=== PATIENT | male | born 1960 | race Caucasian/White ===

== ENCOUNTER 2024-11-12 10:31 | Inpatient (IN) | payer BC, MEDICARE ==
[~2024-11-12] VITALS: Ht 182.9 cm; Wt 96.2 kg
[2024-11-12] VITALS (22 sets, daily range): BP systolic 105–126; BP diastolic 54–86; PULSE 68–102; RESP 18–33; TEMP 36.1–37.1; O2SAT 93–98
[2024-11-12 11:05] LABS: BASOPHILS % 0.3 % (0.0-2.0); DIFFERENTIAL COMMENT 0; EOSINOPHILS % 1.7 % (0.0-5.0); HEMATOCRIT. 45.4 % (42.0-52.0); HEMOGLOBIN. 16.4 g/dL (14.0-18.0); LYMPHOCYTES % 10.9 % (20.0-50.0); MEAN CORPUSCULAR HEMOGLOBIN 31.7 pg (28.0-32.0); MEAN CORPUSCULAR VOLUME 87.9 fL (80.0-94.0); MEAN PLATELET VOLUME 8.1 fl (7.4-10.4); NEUTROPHILS % 76.1 % (40.0-76.0); PLATELET 197 x1000/uL (130-400); RED BLOOD CELL COUNT 5.16 mill/uL (4.7-6.1); RED CELL DISTRIBUTION WIDTH 12.5 % (11.6-14.6); WHITE BLOOD COUNT 13.9 x1000/uL (4.5-11.0)
[2024-11-12 11:20] LABS: INR 1.3; PROTHROMBIN TIME 13.5 sec (9.6-11.0)
[2024-11-12 11:28] LABS: CHLORIDE 98 mEq/L (98-107); POTASSIUM 3.6 mEq/L (3.5-5.1); SODIUM 131 mEq/L (136-145)
[2024-11-12 11:29] LABS: CALCIUM 9.2 mg/dL (8.7-10.4); CARBON DIOXIDE 24 mEq/L (21-32)
[2024-11-12 11:34] LABS: CREATININE 1.2 mg/dL (0.6-1.3); GLUCOSE 131 mg/dL (70-105); UREA NITROGEN BLOOD 26 mg/dL (9-23)
[2024-11-12] MEDS: KETOROLAC 30MG/ML VIAL IM NR (13:29)
[2024-11-12] MEDS: DIATR MEGLU/DIATRIZOATE SOLN 120ML ONE (14:10)
[2024-11-12] MEDS: MORPHINE SULFATE 4 MG/ML INJ (FOR IV/IM USE) IV STA (14:35)
[2024-11-12] MEDS: METRONIDAZOLE 500 MG PREMIX 100 ML IV ONE (14:45)
[2024-11-12] MEDS: LEVOFLOXACIN 750MG PREMIX 150 ML IV ONE (15:00)
[2024-11-12] MEDS ORDERED: SUGAMMADEX SODIUM 200MG/2ML VIAL IV ONE (15:54)
[2024-11-12] MEDS ORDERED: ONDANSETRON HCL 4MG/2ML INJ IV PRN ×2 (16:00→23:45)
[2024-11-12] MEDS: MORPHINE SULFATE 4 MG/ML INJ (FOR IV/IM USE) IV PRN (20:00)
[2024-11-12] MEDS: DEXT 5%/0.45% NACL KCL 20MEQ/L 1,000 ML IV SCH (20:55)
[2024-11-12] MEDS: METRONIDAZOLE 500 MG PREMIX 100 ML IV SCH (20:55)
[2024-11-12] MEDS: PIPERACILLIN/TAZO 3.375G/50ML 50 ML IV SCH (22:13)
[2024-11-12] MEDS: MORPHINE SULFATE 2 MG/ML INJ (NOT FOR IM USE) IV PRN (22:14)
[2024-11-12 22:28] LABS: HEMATOCRIT. 45.6 % (42.0-52.0); HEMOGLOBIN. 16.1 g/dL (14.0-18.0); MEAN CORPUSCULAR HEMOGLOBIN 31.4 pg (28.0-32.0); MEAN CORPUSCULAR HGB CONC 35.2 g/dL (31.0-37.0); MEAN CORPUSCULAR VOLUME 89.2 fL (80.0-94.0); MEAN PLATELET VOLUME 8.3 fl (7.4-10.4); PLATELET 291 x1000/uL (130-400); RED BLOOD CELL COUNT 5.11 mill/uL (4.7-6.1); WHITE BLOOD COUNT 12.2 x1000/uL (4.5-11.0)
[2024-11-12 22:31] LABS: DIFFERENTIAL COMMENT 1
[2024-11-12 22:44] LABS: PLATELET ESTIMATE NORMAL
[2024-11-13] VITALS (49 sets, daily range): BP systolic 93–130; BP diastolic 44–76; PULSE 84–110; RESP 18–31; TEMP 36.7–37.2; O2SAT 75–98
[2024-11-13] MEDS: PIPERACILLIN/TAZO 3.375G/50ML 50 ML IV SCH (05:07)
[2024-11-13 06:08] LABS: HEMATOCRIT. 44.9 % (42.0-52.0); MEAN CORPUSCULAR HEMOGLOBIN 31.5 pg (28.0-32.0); MEAN CORPUSCULAR HGB CONC 35.6 g/dL (31.0-37.0); MEAN CORPUSCULAR VOLUME 88.3 fL (80.0-94.0); MEAN PLATELET VOLUME 9.1 fl (7.4-10.4); PLATELET 298 x1000/uL (130-400); RED BLOOD CELL COUNT 5.08 mill/uL (4.7-6.1); WHITE BLOOD COUNT 13.3 x1000/uL (4.5-11.0)
[2024-11-13 06:25] LABS: DIFFERENTIAL COMMENT 1
[2024-11-13] MEDS: ENOXAPARIN 40MG/0.4ML SYR SUBCUT SCH (08:21)
[2024-11-13] MEDS: PANTOPRAZOLE SODIUM 40 MG/VIAL IV SCH (08:21)
[2024-11-13 09:04] LABS: CHLORIDE 96 mEq/L (98-107); POTASSIUM 4.8 mEq/L (3.5-5.1); SODIUM 128 mEq/L (136-145)
[2024-11-13 09:05] LABS: CALCIUM 8.4 mg/dL (8.7-10.4); CARBON DIOXIDE 18 mEq/L (21-32)
[2024-11-13 09:10] LABS: UREA NITROGEN BLOOD 40 mg/dL (9-23)
[2024-11-13 09:13] LABS: GLUCOSE 367 mg/dL (70-105); PHOSPHORUS 6.3 mg/dL (2.5-4.9)
[2024-11-13 10:55] LABS: PLATELET ESTIMATE NORMAL
[2024-11-13] MEDS ORDERED: NALOXONE HCL 0.4MG/ML VIAL IV PRN (15:15)
[2024-11-13] MEDS: DEXT 5%/0.9% NACL 1,000 ML IV SCH (15:31)
[2024-11-13] MEDS ORDERED: DEXTROSE 50% WATER 50ML SYRINGE IV PRN (19:00)
[2024-11-13] MEDS: BLOOD SUGAR DIAGNOSTIC STRIP TEST SCH (19:26)
[2024-11-13] MEDS: SODIUM CHLORIDE 0.9% 1,000 ML IV SCH (19:28)
[2024-11-13] MEDS: INSULIN LISPRO 100 UNITS/ML SUBCUT SCH (20:48)
[2024-11-14] VITALS (60 sets, daily range): BP systolic 89–160; BP diastolic 45–96; PULSE 99–118; RESP 12–35; TEMP 36.4–36.7; O2SAT 91–97
[2024-11-14] MEDS: BLOOD SUGAR DIAGNOSTIC STRIP TEST SCH (02:00)
[2024-11-14] MEDS: INSULIN LISPRO 100 UNITS/ML SUBCUT SCH (02:00)
[2024-11-14 05:56] LABS: HEMATOCRIT. 41.1 % (42.0-52.0); HEMOGLOBIN. 14.3 g/dL (14.0-18.0); MEAN CORPUSCULAR HEMOGLOBIN 30.9 pg (28.0-32.0); MEAN CORPUSCULAR HGB CONC 34.7 g/dL (31.0-37.0); MEAN CORPUSCULAR VOLUME 89.1 fL (80.0-94.0); MEAN PLATELET VOLUME 8.7 fl (7.4-10.4); PLATELET 293 x1000/uL (130-400); RED BLOOD CELL COUNT 4.62 mill/uL (4.7-6.1)
[2024-11-14 06:02] LABS: DIFFERENTIAL COMMENT 1
[2024-11-14 06:07] LABS: CARBON DIOXIDE 23 mEq/L (21-32); CHLORIDE 100 mEq/L (98-107); POTASSIUM 4.5 mEq/L (3.5-5.1); SODIUM 132 mEq/L (136-145)
[2024-11-14 06:08] LABS: CALCIUM 7.9 mg/dL (8.7-10.4)
[2024-11-14 06:13] LABS: CREATININE 1.9 mg/dL (0.6-1.3); UREA NITROGEN BLOOD 46 mg/dL (9-23)
[2024-11-14 06:15] LABS: PHOSPHORUS 4.2 mg/dL (2.5-4.9)
[2024-11-14 06:52] LABS: GLUCOSE 148 mg/dL (70-105)
[2024-11-14 09:30] LABS: PLATELET ESTIMATE NORMAL
[2024-11-15] VITALS (37 sets, daily range): BP systolic 87–171; BP diastolic 59–154; PULSE 92–113; RESP 20–36; TEMP 36.6–36.9; O2SAT 91–96
[2024-11-15 05:57] LABS: HEMATOCRIT. 36.9 % (42.0-52.0); HEMOGLOBIN. 13.1 g/dL (14.0-18.0); MEAN CORPUSCULAR HEMOGLOBIN 31.5 pg (28.0-32.0); MEAN CORPUSCULAR HGB CONC 35.6 g/dL (31.0-37.0); MEAN CORPUSCULAR VOLUME 88.5 fL (80.0-94.0); PLATELET 274 x1000/uL (130-400); RED BLOOD CELL COUNT 4.17 mill/uL (4.7-6.1); RED CELL DISTRIBUTION WIDTH 12.8 % (11.6-14.6); WHITE BLOOD COUNT 22.6 x1000/uL (4.5-11.0)
[2024-11-15 06:20] LABS: CHLORIDE 106 mEq/L (98-107); POTASSIUM 3.9 mEq/L (3.5-5.1); SODIUM 137 mEq/L (136-145)
[2024-11-15 06:21] LABS: CARBON DIOXIDE 20 mEq/L (21-32)
[2024-11-15 06:22] LABS: CALCIUM 8.3 mg/dL (8.7-10.4)
[2024-11-15 06:26] LABS: CREATININE 1.2 mg/dL (0.6-1.3); GLUCOSE 137 mg/dL (70-105); UREA NITROGEN BLOOD 40 mg/dL (9-23)
[2024-11-15 06:31] LABS: DIFFERENTIAL COMMENT 1
[2024-11-15 10:51] LABS: PLATELET ESTIMATE NORMAL
[2024-11-15] MEDS: VANCOMYCIN 2GM PMX (XELLIA) 400 ML IV SCH (13:16)
[2024-11-15] MEDS: MICAFUNGIN 100 MG in SODIUM CHLORIDE 0.9% 100 ML IV SCH (19:30)
[2024-11-16] VITALS (12 sets, daily range): BP systolic 127–171; BP diastolic 43–90; PULSE 74–99; RESP 21–32; TEMP 36.1–37.1; O2SAT 91–95
[2024-11-16] MEDS: VANCOMYCIN 1.25GM/250ML 250 ML IV SCH (17:38)
[2024-11-17] VITALS (10 sets, daily range): BP systolic 137–167; BP diastolic 72–90; PULSE 70–93; RESP 21–28; TEMP 36.2–36.7; O2SAT 90–98
[2024-11-17] MEDS: INSULIN LISPRO 100 UNITS/ML SUBCUT SCH (21:00)
[2024-11-17] MEDS: DEXT 5%/0.45% NACL KCL 10MEQ/L 1,000 ML IV SCH (21:52)
[2024-11-17] MEDS: INSULIN GLARGINE 100 UNITS/ML SUBCUT SCH (21:53)
[2024-11-17] MEDS: AMLODIPINE 2.5MG TABLET PO SCH (21:54)
[2024-11-18] VITALS (8 sets, daily range): BP systolic 118–171; BP diastolic 47–94; PULSE 68–83; RESP 16–20; TEMP 35.9–36.7; O2SAT 95–100
[2024-11-18 06:40] LABS: BASOPHILS % 0.1 % (0.0-2.0); EOSINOPHILS % 0.3 % (0.0-5.0); HEMATOCRIT. 37.8 % (42.0-52.0); HEMOGLOBIN. 12.7 g/dL (14.0-18.0); LYMPHOCYTES % 8.1 % (20.0-50.0); MEAN CORPUSCULAR HEMOGLOBIN 30.6 pg (28.0-32.0); MEAN CORPUSCULAR HGB CONC 33.7 g/dL (31.0-37.0); MEAN PLATELET VOLUME 7.5 fl (7.4-10.4); MONOCYTES % 6.7 % (2.0-8.0); NEUTROPHILS % 84.8 % (40.0-76.0); PLATELET 298 x1000/uL (130-400); RED BLOOD CELL COUNT 4.15 mill/uL (4.7-6.1); RED CELL DISTRIBUTION WIDTH 13.3 % (11.6-14.6); WHITE BLOOD COUNT 16.8 x1000/uL (4.5-11.0)
[2024-11-18 06:51] LABS: CHLORIDE 110 mEq/L (98-107); POTASSIUM 3.9 mEq/L (3.5-5.1); SODIUM 145 mEq/L (136-145)
[2024-11-18 06:52] LABS: CALCIUM 8.2 mg/dL (8.7-10.4); CARBON DIOXIDE 24 mEq/L (21-32)
[2024-11-18 06:57] LABS: GLUCOSE 152 mg/dL (70-105); UREA NITROGEN BLOOD 29 mg/dL (9-23)
[2024-11-18 06:59] LABS: PHOSPHORUS 2.7 mg/dL (2.5-4.9)
[2024-11-18] MEDS: LOSARTAN 25 MG TABLET PO SCH (09:51)
[2024-11-18] MEDS: PIPERACILLIN/TAZO 3.375G/50ML 50 ML IV SCH (12:33)
[2024-11-18] MEDS: VANCOMYCIN 1.5GM PMX (XELLIA) 300 ML IV SCH (16:58)
[2024-11-19] VITALS: BP 154/78; PULSE 75; RESP 20; TEMP 36.6; O2SAT 95
[2024-11-19 04:00] VITALS: BP 159/77; PULSE 79; RESP 20; TEMP 36.4; O2SAT 95
[2024-11-19] MEDS: VANCOMYCIN 1.5GM/250ML 250 ML IV SCH (06:00)
[2024-11-19 08:00] VITALS: BP 158/77; PULSE 74; RESP 17; TEMP 36.5; O2SAT 95
[2024-11-19 12:00] VITALS: BP 160/77; PULSE 72; RESP 18; TEMP 36.5; O2SAT 98
[2024-11-19 16:00] VITALS: BP 155/74; PULSE 72; RESP 19; TEMP 35.8; O2SAT 97
[2024-11-19 20:00] VITALS: BP 150/69; PULSE 83; RESP 19; TEMP 36; O2SAT 96
[2024-11-20] VITALS (8 sets, daily range): BP systolic 130–140; BP diastolic 56–77; PULSE 78–94; RESP 18–22; TEMP 36.1–37.1; O2SAT 92–96
[2024-11-20] MEDS: IPRATROPIUM/ALBUTEROL 0.5-3(2.5)MG/3ML NEB HHN PRN (17:34)
[2024-11-20] MEDS: IPRATROPIUM/ALBUTEROL 0.5-3(2.5)MG/3ML NEB HHN SCH (20:33)
[2024-11-20] MEDS: GUAIFENESIN 600MG ER TABLET PO SCH (20:51)
[2024-11-21] VITALS (7 sets, daily range): BP systolic 133–147; BP diastolic 61–69; PULSE 81–85; RESP 17–20; TEMP 36.5–37.1; O2SAT 92–100
[2024-11-21 08:50] LABS: BASOPHILS % 0.2 % (0.0-2.0); EOSINOPHILS % 0.7 % (0.0-5.0); HEMATOCRIT. 34.8 % (42.0-52.0); HEMOGLOBIN. 11.9 g/dL (14.0-18.0); LYMPHOCYTES % 8.7 % (20.0-50.0); MEAN CORPUSCULAR HEMOGLOBIN 30.8 pg (28.0-32.0); MEAN CORPUSCULAR HGB CONC 34.2 g/dL (31.0-37.0); MEAN PLATELET VOLUME 8.2 fl (7.4-10.4); MONOCYTES % 6.7 % (2.0-8.0); NEUTROPHILS % 83.7 % (40.0-76.0); PLATELET 240 x1000/uL (130-400); RED BLOOD CELL COUNT 3.87 mill/uL (4.7-6.1); RED CELL DISTRIBUTION WIDTH 13.2 % (11.6-14.6)
[2024-11-21 08:55] LABS: CHLORIDE 105 mEq/L (98-107); POTASSIUM 3.8 mEq/L (3.5-5.1); SODIUM 139 mEq/L (136-145)
[2024-11-21 08:56] LABS: CALCIUM 7.9 mg/dL (8.7-10.4); CARBON DIOXIDE 24 mEq/L (21-32)
[2024-11-21 09:01] LABS: CREATININE 0.9 mg/dL (0.6-1.3); GLUCOSE 112 mg/dL (70-105); UREA NITROGEN BLOOD 13 mg/dL (9-23)
[2024-11-22] VITALS: BP 132/62; PULSE 91; RESP 16; TEMP 36.2; O2SAT 98
[2024-11-22 04:00] VITALS: BP 120/56; PULSE 90; RESP 18; TEMP 36.7; O2SAT 97
[2024-11-22 08:00] VITALS: BP 119/59; PULSE 88; RESP 14; TEMP 36.7; O2SAT 93
[2024-11-22 12:00] VITALS: BP 142/67; PULSE 69; RESP 17; TEMP 36.2; O2SAT 100
[2024-11-22 16:00] VITALS: BP 125/64; PULSE 85; RESP 14; TEMP 36.8; O2SAT 93
[2024-11-22 20:00] VITALS: BP 137/68; PULSE 90; RESP 19; TEMP 37; O2SAT 96
[2024-11-23] VITALS (7 sets, daily range): BP systolic 109–135; BP diastolic 52–70; PULSE 80–90; RESP 16–21; TEMP 36.3–36.8; O2SAT 87–98
[2024-11-23] MEDS: POTASSIUM CHLORIDE IV SCH (04:15)
[2024-11-23] MEDS: NACL IV SCH (04:15)
[2024-11-23] MEDS: DEXT IV SCH (04:15)
[2024-11-23] MEDS ORDERED: IOHEXOL-300 100 ML BOTTLE ONE (23:31)
[2024-11-24] VITALS (8 sets, daily range): BP systolic 108–131; BP diastolic 51–82; PULSE 78–91; RESP 18–19; TEMP 35.8–37.2; O2SAT 93–97
[2024-11-24 10:57] LABS: BASOPHILS % 0.4 % (0.0-2.0); EOSINOPHILS % 1.3 % (0.0-5.0); HEMATOCRIT. 33.7 % (42.0-52.0); HEMOGLOBIN. 11.3 g/dL (14.0-18.0); LYMPHOCYTES % 7.4 % (20.0-50.0); MEAN CORPUSCULAR HEMOGLOBIN 30.7 pg (28.0-32.0); MEAN CORPUSCULAR HGB CONC 33.7 g/dL (31.0-37.0); MEAN CORPUSCULAR VOLUME 91.2 fL (80.0-94.0); MEAN PLATELET VOLUME 8.3 fl (7.4-10.4); MONOCYTES % 7.5 % (2.0-8.0); NEUTROPHILS % 83.4 % (40.0-76.0); PLATELET 289 x1000/uL (130-400); RED BLOOD CELL COUNT 3.69 mill/uL (4.7-6.1); RED CELL DISTRIBUTION WIDTH 13.6 % (11.6-14.6); WHITE BLOOD COUNT 12.7 x1000/uL (4.5-11.0)
[2024-11-24 11:02] LABS: CHLORIDE 103 mEq/L (98-107); POTASSIUM 4.2 mEq/L (3.5-5.1); SODIUM 136 mEq/L (136-145)
[2024-11-24 11:03] LABS: CARBON DIOXIDE 23 mEq/L (21-32)
[2024-11-24 11:08] LABS: GLUCOSE 185 mg/dL (70-105)
[2024-11-24 11:09] LABS: UREA NITROGEN BLOOD 10 mg/dL (9-23)
[2024-11-25 04:00] VITALS: BP 134/60; PULSE 86; RESP 18; TEMP 36.9; O2SAT 96
[2024-11-25 08:00] VITALS: BP 109/59; PULSE 84; RESP 19; TEMP 36.1; O2SAT 95
[2024-11-25 08:05] VITALS: PULSE 86; RESP 19; O2SAT 98
[2024-11-25 12:00] VITALS: BP 117/58; PULSE 86; RESP 19; TEMP 36.2; O2SAT 95
[2024-11-25 16:00] VITALS: BP 122/65; PULSE 91; RESP 19; TEMP 36.3; O2SAT 95
[2024-11-25 20:00] VITALS: BP 131/63; PULSE 92; RESP 18; TEMP 36.4; O2SAT 96
[2024-11-25] MEDS ORDERED: PIPERACILLIN/TAZO 3.375G/50ML 50 ML IV SCH (23:00)
[2024-11-26] VITALS: BP 115/53; PULSE 79; RESP 17; TEMP 36.4; O2SAT 98
[2024-11-26 04:00] VITALS: BP 97/50; PULSE 69; RESP 18; TEMP 36.2; O2SAT 100
[2024-11-26 08:00] VITALS: BP 129/66; PULSE 85; RESP 18; TEMP 36.4; O2SAT 98
[2024-11-26] MEDS ORDERED: LIDOCAINE HCL 1% 10 MG/ML 10ML VIAL ONE (08:05)
[2024-11-26 12:00] VITALS: BP 123/63; PULSE 83; RESP 19; TEMP 36.6; O2SAT 95
[2024-11-26 16:00] VITALS: BP 119/60; PULSE 93; RESP 19; TEMP 36.8; O2SAT 98
[2024-11-26] MEDS: CEFTRIAXONE 2GM/50ML 50 ML IV SCH (19:55)
[2024-11-26 20:00] VITALS: BP 130/55; PULSE 84; RESP 19; TEMP 36.8; O2SAT 97
[2024-11-27] VITALS: BP 136/65; PULSE 91; RESP 19; TEMP 36.6; O2SAT 96
[2024-11-27 04:00] VITALS: BP 116/57; PULSE 82; RESP 18; TEMP 36.4; O2SAT 97
[2024-11-27 08:00] VITALS: BP 119/62; PULSE 83; RESP 17; TEMP 36.4; O2SAT 98
[2024-11-27 12:00] VITALS: BP 121/63; PULSE 80; RESP 18; TEMP 36.6; O2SAT 99
[2024-11-27 15:38] VITALS: BP 121/63; PULSE 80; TEMP 97.8; O2SAT 99
[2024-11-27 16:00] VITALS: BP 117/55; PULSE 84; RESP 17; TEMP 36.8; O2SAT 98
== END 2024-11-27 18:28 | DRG 853 ==
LOC: ER 10:31 → EDBEDREQ 15:28 → ENRESERV 17:45 → MICUSO 18:10 → 5EST 11-15 06:23 → 7EST 11-17 23:53
PROVIDERS: ADMIT Internal Medicine; ATTEND Internal Medicine
PROC: 0D1B0Z4 Bypass Ileum to Cutaneous, Open Approach (ICD-10-PCS; principal; 2024-11-12)
PROC: 02HV33Z Insertion of Infusion Device into Superior Vena Cava, Percutaneous Approach (ICD-10-PCS; 2024-11-26)
PROC: B548ZZA Ultrasonography of Superior Vena Cava, Guidance (ICD-10-PCS; 2024-11-26)
DX: A41.9 Sepsis, unspecified organism (principal); K63.1 Perforation of intestine (nontraumatic); K65.9 Peritonitis, unspecified; E87.1 Hypo-osmolality and hyponatremia; N17.9 Acute kidney failure, unspecified; K56.7 Ileus, unspecified; E83.39 Other disorders of phosphorus metabolism; I10 Essential (primary) hypertension; J44.9 Chronic obstructive pulmonary disease, unspecified
CPT/HCPCS: 36415; 36573; 71045; 74018; 74176; 74177; 76705; 80048; 80202; 82962; 83036; 83735; 84100; 84145; 85025; 86850; 86900; 87077; 87186; 88307; 94070; 94640; 94664; 94760; 97110; 97116; 97162; 97530; 97535; 99291; A4606; C1725; C1758; J0696; J1650; J1815; J2003; J2248; J2270; J2470; J2543; J3370; J3480; J3490; J7030; J7050; J7120; Q9963; Q9967